=== PATIENT | female | born 1965 | race Two or more races ===

== ENCOUNTER 2025-06-18 06:40 | Emergency (ER) | payer MEDICAID ==
[~2025-06-18] VITALS: Ht 167.6 cm; Wt 75.0 kg
[~2025-06-18 06:40] MED LIST: AZIT1POW PO
--- NOTE | 2025-06-18 07:32 | ED.PDOC ---
History of Present Illness HPI Comments 59-YEAR-OLD FEMALE BIBA WITH PRIOR MEDICAL HISTORY OF CIRRHOSIS, CHF, COPD AND A CHIEF COMPLAINT OF SHORTNESS A BREATH. PATIENT REPORTS ON HAVING SHORTNESS A BREATH FOR ONE WEEK WITH A NOTICED INCREASED, BILATERAL LOWER EXTREMITY EDEMA, IN REDNESS DUE FROM A PRIOR SPIDER BITE. EMS REPORT ON SEEN THE PATIENT HAD AN SATURATION LEVEL OF 97% ROOM AIR. PATIENT STATES HAVING FREQUENCY, N/V/D, AND ABDOMEN DISTENTION WELL. DENIES CHILLS, FEVER, CP. NO OTHER ASSOCIATED SYMPTOMS, MODIFIERS, RECENT INJURIES OR SICK CONTACTS PRESENT AT THIS TIME. 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 Family History Family History: Reviewed,noncontributory to illness, Unknown Social History Smoker: Non-Smoker Alcohol: Occasionally Drugs: Denies Drug Use Lives In: Home Constitutional: denies: chills, diaphoresis, fatigue, fever, malaise, sweats, weakness, others EENTM: denies: blurred vision, double vision, ear bleeding, ear discharge, ear drainage, ear pain, ear ringing, eye pain, eye redness, hearing loss, mouth pain, mouth swelling, nasal discharge, nose bleeding, nose congestion, nose pain, photophobia, tearing, throat pain, throat swelling, voice changes, others Respiratory: reports: shortness of breath; denies: cough, hemoptysis, orthopnea, SOB at rest, SOB with excertion, stridor, wheezing, others Cardiovascular: denies: chest pain, dizzy spells, diaphoresis, Dyspnea on exertion, edema, irregular heart beat, left arm pain, lightheadedness, palpitations, PND, syncope, others Gastrointestinal: reports: abdomen distended, diarrhea, nausea, vomiting; denies: abdominal pain, blood streaked bowels, constipated, dysphagia, difficulty swallowing, hematemesis, melena, poor appetite, poor fluid intake, rectal bleeding, rectal pain, others Genitourinary: denies: abnormal vagina bleeding, burning, dyspareunia, dysuria, flank pain, frequency, hematuria, incontinence, pain, , vagina discharge, urgency, others Neurological: denies: dizziness, fainting, headache, left sided numbness, left sided weakness, numbness, paresthesia, pre-existing deficit, right sided numbness, right sided weakness, seizure, speech problems, tingling, tremors, weakness, others Musculoskeletal: denies: back pain, gout, joint pain, joint swelling, muscle pain, muscle stiffness, neck pain, others Integumetry: denies: bruises, change in color, change in hair/nails, dryness, laceration, lesions, lumps, rash, wounds, others Allergic/Immunocompromised: denies: Difficulty Healing, Frequent Infections, Hives, Itching, others Hematologic/Lymphatic: denies: anemia, blood clots, easy bleeding, easy bruising, swollen glands, others Endocrine: denies: excessive hunger, excessive sweating, excessive thirst, excessive urination, flushing, intolerance to cold, intolerance to heat, unexplained weight gain, unexplained weight loss, others Psychiatric: denies: anxiety, bipolar disorder, depression, hopeless, panic disorder, schizophrenia, sleepless, suicidal, others All Other Systems: Reviewed and Negative Physical Exam General Appearance: No Apparent Distress, Normal HEENT: Normal ENT Inspection, Pharynx Normal, TMs Normal Neck: Full Range of Motion, Non-Tender, Normal, Normal Inspection Respiratory: Chest Non-Tender, Lungs Clear, No Accessory Muscle Use, No Respiratory Distress, Normal Breath Sounds Cardiovascular: No Edema, No JVD, No Murmur, No Gallop, Normal Peripheral Pulses, Regular Rate/Rhythm Breast Exam: Deferred Gastrointestinal: No Organomegaly, Non Tender, No Pulsatile Mass, Normal Bowel Sounds, Soft Genitalia: Deferred Pelvic: Deferred Rectal: Deferred Extremities: No calf tenderness, Normal capillary refill, Normal inspection, Normal range of motion, Non-tender, No pedal edema Musculoskeletal : Apperance: Normal Neurologic: Alert, 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 Was a procedure done?: No Differential Dx Considerations may include: Worsening liver failure, anasarca, viral syndrome, electrolyte abnormalities, ACS X-Ray, Labs, Meds, VS Vital Signs Date Time Temp Pulse Resp B/P (MAP) Pulse Ox O2 Delivery O2 Flow Rate FiO2 06/18/25 08:42 98.2 108 16 113/82 (92) 96 98.2 06/18/25 06:45 97.6 101 17 128/85 96 97.6 06/18/25 06:45 96 Room Air* 0 21 06/18/25 06:41 109 Lab Test 06/18/25 10:28 06/18/25 08:30 06/18/25 07:27 Range/Units Troponin I High Sensitivity < 3 L 4 5 </=34 ng/L White Blood Count 8.4 4.4-10.8 10^3/uL Red Blood Count 3.05 L 4.0-5.20 10^6/uL Hemoglobin 9.1 L 12.2-16.2 g/dL Hematocrit 27.6 L 36.0-46.0 % Mean Corpuscular Volume 90.5 80.0-100.0 fL Mean Corpuscular Hemoglobin 29.7 28.0-32.0 pg Mean Corpuscular Hemoglobin Concent 32.8 32.0-36.0 g/dL Red Cell Distribution Width 18.6 H 11.8-14.3 % Platelet Count 421 140-450 10^3/uL Mean Platelet Volume 6.4 L 6.9-10.8 fL Neutrophils (%) (Auto) 73.9 37.0-80.0 % Lymphocytes (%) (Auto) 14.7 10.0-50.0 % Monocytes (%) (Auto) 9.7 0.0-12.0 % Eosinophils (%) (Auto) 1.0 0.0-7.0 % Basophils (%) (Auto) 0.7 0.0-2.0 % Neutrophils # (Auto) 6.2 1.6-8.6 10 ^3/uL Lymphocytes # (Auto) 1.2 0.4-5.4 10 ^3/uL Monocytes # (Auto) 0.8 0-1.3 10 ^3/uL Eosinophils # (Auto) 0.1 0-0.8 10 ^3/uL Basophils # (Auto) 0.1 0-0.2 10 ^3/uL Nucleated Red Blood Cells 0.0 % Prothrombin Time 13.7 H 9.3-11.8 sec Prothrombin Time INR 1.33 H 0.9-1.15 Activated Partial Thromboplast Time 27.0 24.5-34.5 SEC Sodium Level 132 L 136-145 mmol/L Potassium Level 3.0 L 3.5-5.1 mmol/L Chloride Level 99 98-107 mmol/L Carbon Dioxide Level 23 20-31 mmol/L Anion Gap 10 5-15 Blood Urea Nitrogen 11 9-23 mg/dL Creatinine 0.60 0.550-1.02 mg/dL Glomerular Filtration Rate Calc 104 >90 mL/min BUN/Creatinine Ratio 18.3 10.0-20.0 Serum Glucose 104 74-106 mg/dL Lactic Acid Level 1.2 0.4-2.0 mmol/L Calcium Level 7.9 L 8.7-10.4 mg/dL Total Bilirubin 1.4 H 0.2-1.0 mg/dL Aspartate Amino Transferase (AST) 59 H 13-40 U/L Alanine Aminotransferase (ALT) 15 7-40 U/L Alkaline Phosphatase 119 H 46-116 U/L Total Protein 7.0 5.7-8.2 g/dL Albumin 3.1 L 3.2-4.8 g/dL Time of 1ST Reevaluation: 08:00 Reevaluation 1ST: Unchanged Patient Education/Counseling: Diagnosis, Treatment, Prognosis Family Education/Counseling: No Family Present SEPSIS Sepsis Screen Date sepsis recognized/suspect: Jun 18, 2025 Time Sepsis recognized/suspect: 644 Recent Procedure: No On Antibiotic Therapy: No Respiratory Rate >20: No Heart Rate >90: Yes Temp<36 C (96.8 F) or >38.3 C: No SBP <90 or MAP <65 mmHG: No New Acute Mental Status Change: No Is the patient on CPAP, BIPAP,: No Physician Orders Chest Portable (06/18/25 06:48) Insert Paul Catheter QSHIFT (06/18/25 06:48) Blood Culture (06/18/25 06:48) Head Without Contrast (06/18/25 06:48) Morphine Sulfate Injection (9/24/25 11:45) Ondansetron Hcl (Zofran) (06/18/25 11:45) Vital Signs Date Time Temp Pulse Resp B/P (MAP) Pulse Ox O2 Delivery O2 Flow Rate FiO2 06/18/25 08:42 98.2 108 16 113/82 (92) 96 98.2 06/18/25 06:45 97.6 101 17 128/85 96 97.6 06/18/25 06:45 96 Room Air* 0 21 06/18/25 06:41 109 Laboratory Tests Test 06/18/25 07:27 Lactic Acid Level 1.2 mmol/L (0.4-2.0) White Blood Count 8.4 10^3/uL (4.4-10.8) Departure 1 Departure Time of Disposition: 11:49 ([place] Case: [id number] with worsening anasarca and on nasal cannula for shortness of breath.Patient accepted as a transfer to [place]) Impression: Primary Impression: Respiratory distress Additional Impressions: Shortness of breath Generalized weakness Disposition: 02 SHORT TERM HOSPITAL Condition: Serious Critical Care Note Critical Care Time?: No Stability Stability form required: No I personally scribed for CELESTE NASSAR MD ([email or web address]) on 06/18/25 at 07:32. Electronically submitted by Jf Nj ([email or web address]). CELESTE NASSAR MD Jun 18, 2025 07:32
[2025-06-18 07:48] LABS: Hematocrit 27.6 % (36.0-46.0); Hemoglobin 9.1 g/dL (12.2-16.2); Mean Corpuscular Hemoglobin 29.7 pg (28.0-32.0); Mean Corpuscular Volume 90.5 fL (80.0-100.0); Nucleated Red Blood Cells % 0.0 %
--- NOTE | 2025-06-18 07:53 | DVH ---
CLINICAL INFORMATION: 59 years old, Female; syncope. TECHNIQUE: Axial imaging was obtained through the brain without contrast. Coronal and sagittal reform atted images were obtained, reviewed, and stored. Images were reviewed in brain and bone windows. Al l CT scans at this medical facility are performed using dose modulation techniques as appropriate to a performed exam including the following: Automated exposure control was utilized; adjustment of the MA and/or KV according to patient size; and use of iterative reconstruction technique. CTDIvol = 50.8 7 mGy DLP = 1002.63 mGy-cm COMPARISON: None FINDINGS: There is no acute intracranial hemorrhage. No mass effect or midline shift. The ventricles and sulci are within normal limits in size for age. Basal cisterns are patent. The calvarium is unre markable. Paranasal sinuses and mastoid air cells are clear. IMPRESSION: No CT evidence of acute intracranial abnormality.
[2025-06-18 07:58] LABS: Alanine Aminotransferase 15 U/L (7-40); Anion Gap 10 (5-15); BUN/Creatinine Ratio 18.3 (10.0-20.0); Blood Urea Nitrogen 11 mg/dL (9-23); Carbon Dioxide 23 mmol/L (20-31); Chloride 99 mmol/L (98-107); Glucose 104 mg/dL (74-106); Total Protein 7.0 g/dL (5.7-8.2)
[2025-06-18 07:59] LABS: INR 1.33 (0.9-1.15); Partial Thromboplastin Time 27.0 SEC (24.5-34.5); Prothrombin Time 13.7 sec (9.3-11.8)
[2025-06-18 08:02] LABS: Albumin 3.1 g/dL (3.2-4.8); Alkaline Phosphatase 119 U/L (46-116); Bilirubin, Total 1.4 mg/dL (0.2-1.0); Calcium 7.9 mg/dL (8.7-10.4); Potassium 3.0 mmol/L (3.5-5.1); Sodium 132 mmol/L (136-145)
--- NOTE | 2025-06-18 08:05 | DVH ---
EXAM: XY CHEST PORTABLE Indication: sob Technique: Single frontal view of the chest was obtained Comparison: XR CHEST 1 VIEW on DOS: 02/11/25, XR CHEST 1 VIEW on DOS: 02/10/25, XY CHEST TWO VIEWS ROUT INE on DOS: 06/12/24 FINDINGS: Lines and Tubes: None Lungs: No focal consolidation. Pleura: No effusion. No pneumothorax. Cardiomediastinal contours: Unremarkable. Atherosclerotic vascular calcifications of the thoracic ao rta are noted. Bones: No acute osseous abnormality. IMPRESSION: No acute cardiopulmonary disease.
--- NOTE | 2025-06-18 10:57 | ECG ---
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
[2025-06-18] MEDS: MORPHINE SULFATE 4 MG/ML SYR/VIAL IV ONE (12:42)
[2025-06-18] MEDS: POTASSIUM CHL 20 Meq TABLET PO ONE (12:42)
[2025-06-18] MEDS: ONDANSETRON HCL 4 MG/2 ML VIAL IV ONE (12:43)
[2025-06-18 12:57] VITALS: PULSE 100; RESP 18; O2SAT 97
[2025-06-18 13:10] VITALS: BP 105/68; PULSE 103; RESP 14; TEMP 98.1; O2SAT 99
[2025-06-18] MEDS: FUROSEMIDE 40 MG/4 ML VIAL IV ONE (13:12)
[2025-06-18] MEDS: HYDROcodone-ACET 10/325MG TAB PO ONE (13:22)
== END 2025-06-18 13:08 | disposition short-term general hospital (02) ==
LOC: EDBD 06:40 → ER 06:40 → EDUNIT# 06:40 → ER 13:08
DX: R06.03 Acute respiratory distress (principal); R53.1 Weakness; J44.9 Chronic obstructive pulmonary disease, unspecified; I50.9 Heart failure, unspecified; K74.60 Unspecified cirrhosis of liver; Z88.0 Allergy status to penicillin
CPT/HCPCS: 36415; 70450; 71045; 80053; 83605; 84484; 85025; 85610; 85730; 87040; 93005; 96374; 99285; J1938